=== PATIENT | male | born 1940 | race Caucasian/White ===

== ENCOUNTER → 2016-05-19 10:56 | Outpatient (CLI) | payer MEDICARE, BC ==
[2009-06-29 07:17] VITALS: BMI 25.5
== END | disposition home or self-care (01) ==
LOC: D.RAD 10:56
DX: R05 Cough (principal); R10.13 Epigastric pain

== ENCOUNTER → 2016-05-23 08:51 | Outpatient (CLI) | payer MEDICARE, BC ==
[2009-06-29 07:17] VITALS: BMI 25.5
== END | disposition home or self-care (01) ==
LOC: D.RAD 08:30
DX: R10.13 Epigastric pain (principal)

== ENCOUNTER → 2016-07-22 07:28 | Outpatient (CLI) | payer MEDICARE, BC ==
[2009-06-29 07:17] VITALS: BMI 25.5
[2016-07-23 09:12] LABS: IMMUNOGLOBULIN E 139 IU/mL (0-100)
[2016-07-25 14:16] LABS: IMMUNOGLOBULIN A 148 mg/dL (61-437); IMMUNOGLOBULIN G 762 mg/dL (700-1600)
== END | disposition home or self-care (01) ==
LOC: D.RT 07-20 08:00 → D.LAB 07-20 09:00 → D.RT 07:28
PROVIDERS: Internal Medicine Pulmonary Disease
DX: J45.991 Cough variant asthma (principal)

== ENCOUNTER 2016-09-13 07:08 | Emergency (ER) | payer MEDICARE, BC ==
[2009-06-29 07:17] VITALS: BMI 25.5
[2016-09-13 07:49] LABS: BASOPHILS 0.3 % (0-2); EOSINOPHILS 0 % (0-7); HEMATOCRIT 47.8 % (42.0-54.0); HEMOGLOBIN 16.3 g/dL (13.5-17.5); IMMATURE GRANULOCYTES 0.2 % (0-5); LYMPHOCYTES 9.7 % (15-50); MCH 31.2 pg (26.0-34.0); MCHC 34.1 g/dL (31.0-37.0); MCV 91.6 fL (80.0-100.0); MONOCYTES 9.1 % (2-11); NEUTROPHILS 80.7 % (40-80); PLATELET COUNT 183 10x3/uL (130-400); RBC 5.22 10x6/uL (4.20-6.10); RDW 13.9 % (11.5-14.5); WBC 10.3 10x3/uL (4.8-10.8)
[2016-09-13 08:11] LABS: ALBUMIN 3.7 g/dL (3.4-5.0); ANION GAP 14.7 mmol/L (8-16); BILIRUBIN - TOTAL 0.96 mg/dL (0.2-1.3); CALCIUM 9.8 mg/dL (8.5-10.1); CARBON DIOXIDE 26.2 mmol/L (21.0-32.0); CREATININE - SERUM 1.4 mg/dL (0.6-1.3); POTASSIUM - SERUM 3.9 mmol/L (3.5-5.1); PROTEIN - SERUM 7.1 g/dL (6.4-8.2)
[2016-09-13 08:20] LABS: MAGNESIUM - SERUM 2.2 mg/dL (1.8-2.4); THYROID STIMULATING HORMONE 8.09 uIU/mL (0.36-3.74)
== END 2016-09-13 12:24 | disposition home or self-care (01) ==
LOC: D.ER 07:08
PROVIDERS: Emergency Medicine
DX: R11.10 Vomiting, unspecified (principal); R10.9 Unspecified abdominal pain; E02 Subclinical iodine-deficiency hypothyroidism; F41.9 Anxiety disorder, unspecified; Z95.0 Presence of cardiac pacemaker; I44.0 Atrioventricular block, first degree

== ENCOUNTER 2016-10-29 19:58 | Emergency (ER) | payer MEDICARE, BC ==
[2009-06-29 07:17] VITALS: BMI 25.5
[2016-10-29 20:27] LABS: BASOPHILS 0.3 % (0-2); EOSINOPHILS 0.9 % (0-7); HEMATOCRIT 44.2 % (42.0-54.0); HEMOGLOBIN 14.7 g/dL (13.5-17.5); IMMATURE GRANULOCYTES 0.6 % (0-5); LYMPHOCYTES 8.9 % (15-50); MCHC 33.3 g/dL (31.0-37.0); MCV 93.2 fL (80.0-100.0); MEAN PLATELET VOLUME 9.6 fL (7.4-10.4); MONOCYTES 12.3 % (2-11); PLATELET COUNT 153 10x3/uL (130-400); RBC 4.74 10x6/uL (4.20-6.10); RDW 13.8 % (11.5-14.5); WBC 6.5 10x3/uL (4.8-10.8)
[2016-10-29 20:45] LABS: ALBUMIN 3.6 g/dL (3.4-5.0); ALKALINE PHOSPHATASE 73 U/L (46-116); ALT (SGPT) 27 U/L (10-68); AMYLASE - SERUM 46 U/L (25-115); BILIRUBIN - TOTAL 1.09 mg/dL (0.2-1.3); CALC OSMOLALITY 277 mosm/kg (275-300); CALCIUM 9.2 mg/dL (8.5-10.1); CHLORIDE - SERUM 103 mmol/L (98-107); GLUCOSE 123 mg/dL (74-106); LIPASE 117 U/L (73-393); POTASSIUM - SERUM 3.9 mmol/L (3.5-5.1); PROTEIN - SERUM 6.7 g/dL (6.4-8.2); SODIUM 137 mmol/L (136-145); UREA NITROGEN 20 mg/dL (7-18); eGFR NON AFRICAN AMERICAN 78 mL/min (90-120)
[2016-10-29 21:57] LABS: APPEARANCE CLEAR (CLEAR); BILIRUBIN NEGATIVE (NEGATIVE); COLOR YELLOW (YELLOW); GLUCOSE NEGATIVE (NEGATIVE); KETONE SMALL mg/dL (NEGATIVE); LEUKOCYTE ESTERASE NEGATIVE (NEGATIVE); NITRITE NEGATIVE (NEGATIVE); PROTEIN NEGATIVE (NEGATIVE); UROBILINOGEN NORMAL (NORMAL)
== END 2016-10-29 22:30 | disposition home or self-care (01) ==
LOC: D.ER 19:58
PROVIDERS: Emergency Medicine
DX: R11.10 Vomiting, unspecified (principal); E86.0 Dehydration; K59.00 Constipation, unspecified; F41.9 Anxiety disorder, unspecified; Z95.0 Presence of cardiac pacemaker; I44.0 Atrioventricular block, first degree; I49.3 Ventricular premature depolarization

== ENCOUNTER 2017-05-19 07:59 | Day surgery (SDC) | payer MEDICARE, BC ==
[~2017-05-19] VITALS: Ht 175.3 cm; Wt 77.1 kg
--- NOTE | ~2017-05-19 | OP ---
PATIENT NAME: VIPIN SUN JR MEDICAL RECORD: [id number] :44 LOCATION:[facility] ADMISSION DATE: SURGEON: NEIL GARCÍA MD DATE OF OPERATION: 05/19/2017 PREOPERATIVE DIAGNOSIS: Intractably symptomatic hemorrhoids. POSTOPERATIVE DIAGNOSIS: Intractably symptomatic hemorrhoids with third-degree internal hemorrhoidal prolapse. PROCEDURE: Procedure for prolapse and hemorrhoids. SURGEON: Neil García MD SAP SECURITY ARCHITECT: None. BLOOD LOSS: Minimal. ANESTHESIA: General. COMPLICATIONS: None. The risks, possible complications, and alternatives of the procedure were explained to the patient. He elected to proceed. OPERATIVE COURSE: The patient was conveyed to the operating room electively on 05/19/2017. General anesthesia was induced by the anesthesia staff. The patient was placed in the lithotomy position. The buttocks were taped laterally. The anus and perianal areas were sterilely prepped and draped. U-shaped anal retractors were placed. This revealed enlarged internal and external hemorrhoids as well as internal hemorrhoidal prolapse. There was no anal fissure. No anal fistula. No evidence of perirectal abscess. The clear retractor was placed and sewn in place to the surrounding anoderm with 2-0 silks. A mucosal pursestring suture of 2-0 Prolene was applied 1cm cephalad to the clear retractor. The PPH stapling device was inserted with the anvil cephalad to the pursestring suture, which was then tightened and tied. The stapling device was engaged. It was held in place for 2 minutes and then fired. It was then removed under direct vision. There was an entire donut of internal hemorrhoidal and rectal mucosal tissue within the stapling device. Bleeding along the anastomotic staple line was controlled with [id number] 3-0 Vicryls. Gelfoam was applied within the anus and the lower rectum. A combination of Marcaine and steroid preparation were used to infiltrate the perianal tissues. A topical anesthetic cream was applied to the external hemorrhoids. The patient was then extubated and conveyed to post-anesthesia care unit where he was in stable condition. The patient developed some urinary retention later in the evening and this required urinary catheterization. He is being dismissed home on hydrocodone as well as Valium and Colace. I will see him in the office on a p.r.n. basis. TRANSINT:[id number] Voice Confirmation ID: [id number] DOCUMENT ID: [id number] OPERATIVE REPORT [id number] VIPIN SUN JR, ROBERT MD at 0938 CC: REJI HANDY MD [id number] DICTATION DATE: 05/22/17 1209 NATURE PHOTOGRAPHER: 05/22/17 1525 [facility] 05/19/17 [place] [id number]
--- NOTE | ~2017-05-19 | HP ---
PATIENT: VIPIN SUN JR MEDICAL RECORD: [id number] ACCOUNT: [id number] LOCATION:[facility] : 44 ADMISSION DATE: 05/19/17 HISTORY AND PHYSICAL EXAMINATION CHIEF COMPLAINT: Hemorrhoids. HISTORY: The patient has intractably symptomatic hemorrhoids. He is to undergo a procedure for prolapse and hemorrhoids. The patient recently had an upper respiratory infection. On today's chest x-ray, it appears that he has bilateral pneumonias. He is not dyspneic. He has normal O2 saturations. The pathophysiology of hemorrhoids as well as the risks of the procedure were discussed with the patient. He elects to proceed. SOCIAL HISTORY: Nonsmoker. PAST MEDICAL AND SURGICAL HISTORY: COPD, bronchitis, history of bradycardia, hiatal hernia, depression, anxiety, insomnia, and hypercholesterolemia. He is hard of hearing. History of pacemaker, history of appendectomy, history of cholecystectomy. HOME MEDICINES: Albuterol, Pacerone, Flomax, Ambien, Celexa, Zocor, Breo as well as Xanax. ALLERGIES: No known drug allergies. PHYSICAL EXAMINATION: GENERAL: The patient does not appear acutely ill. He does not appear chronically ill. VITAL SIGNS: Reviewed. HEAD: External ears appear normal. EYES: Extraocular movements are intact. NECK: Trachea is midline. CHEST: No intercostal retractions. PULMONARY: Nonlabored. No stridor. IMPRESSION: Intractably symptomatic hemorrhoids. PLAN: Procedure for prolapse and hemorrhoids. TRANSINT:[id number] Voice Confirmation ID: [id number] DOCUMENT ID: [id number] BOY GARCÍA MD at 0938 CC: MATHIEU LOU MD, REJI HANDY MD and RITU MARIANO [id number] DICTATION DATE: 05/19/17 1204 ASSOCIATE DIRECTOR FINANCIAL AID: 05/19/17 1253 [facility] 05/19/17 [place] [id number] [place] [address]
[~2017-05-19 07:59] MED LIST: ALBUTEROL2.5 MG/3 M INH; AMBIEN10 MG PO; FLOMAX0.4 MG PO; PACERONE200 MG PO
[2017-05-19 08:42] LABS: HEMATOCRIT 43.9 % (42.0-54.0); HEMOGLOBIN 14.6 g/dL (13.5-17.5); MCH 30.2 pg (26.0-34.0); MCHC 33.3 g/dL (31.0-37.0); MCV 90.7 fL (80.0-100.0); MEAN PLATELET VOLUME 8.9 fL (7.4-10.4); RBC 4.84 10x6/uL (4.20-6.10); RDW 13.5 % (11.5-14.5); WBC 12.6 10x3/uL (4.8-10.8)
[2017-05-19] MEDS ORDERED: XANAX0.5 MG PO (09:33)
[2017-05-19] MEDS ORDERED: BREO ELLIPTA 21 EACH (09:33)
[2017-05-19] MEDS ORDERED: ZOCOR10 MG PO (09:34)
[2017-05-19] MEDS ORDERED: CELEXA40 MG PO (09:34)
[2017-05-19] MEDS ORDERED: MULTIPLE VITAMI1 TA1 PO (09:35)
[2017-05-19 09:44] VITALS: BP 118/64; Ht 175.3 cm; Wt 77.1 kg
[2017-05-19] MEDS ORDERED: HYDROCODON-ACE1 EAC7 PO (13:05)
[2017-05-19] MEDS ORDERED: VALIUM5 MG PO (13:05)
[2017-05-19] MEDS ORDERED: COLACE100 MG PO (13:05)
== END 2017-05-19 15:25 | disposition home or self-care (01) ==
LOC: D.OPS 07:59 → D.PAN 09:30 → D.OPS 10:00 → D.PAN 10:00 → D.OPS 15:25
PROVIDERS: Anesthesiology
DX: K64.2 Third degree hemorrhoids (principal); J44.9 Chronic obstructive pulmonary disease, unspecified; K44.9 Diaphragmatic hernia without obstruction or gangrene; Z01.812 Encounter for preprocedural laboratory examination

== ENCOUNTER → 2017-07-10 12:44 | Outpatient (CLI) | payer MEDICARE, BC ==
[2017-05-19 09:44] VITALS: BMI 25.1
[~2017-07-10 12:44] MED LIST changes: +BETAPACE 80 MG80 MG; +BREO ELLIPTA 21 EACH; +CELEXA40 MG PO; +COLACE100 MG PO; +HYDROCODON-ACE1 EAC7 PO; +MULTIPLE VITAMI1 TA1 PO; +PREDNISONE20 MG PO; +VALIUM5 MG PO; +XANAX0.5 MG PO; +ZOCOR10 MG PO
== END | disposition home or self-care (01) ==
LOC: D.RAD 12:44
DX: J45.909 Unspecified asthma, uncomplicated (principal)

== ENCOUNTER → 2017-07-24 13:59 | Outpatient (CLI) | payer MEDICARE, BC ==
[2017-05-19 09:44] VITALS: BMI 25.1
== END | disposition home or self-care (01) ==
LOC: D.CT 13:59
DX: J70.4 Drug-induced interstitial lung disorders, unspecified (principal)

== ENCOUNTER 2017-08-15 08:23 | Outpatient (CLI) | payer MEDICARE, BC ==
[~2017-08-15] VITALS: Ht 175.3 cm; Wt 72.7 kg
[~2017-08-15 08:23] MED LIST changes: -BETAPACE 80 MG80 MG; -PREDNISONE20 MG PO
[2017-08-15] MEDS ORDERED: BETAPACE 80 MG80 MG (09:03)
[2017-08-15] MEDS ORDERED: PREDNISONE20 MG PO (09:05)
[2017-08-15 09:21] VITALS: Ht 175.3 cm; Wt 72.7 kg
[2017-08-15 09:46] LABS: BASOPHILS 0.4 % (0-2); EOSINOPHILS 3.5 % (0-7); HEMATOCRIT 42.1 % (42.0-54.0); HEMOGLOBIN 14.1 g/dL (13.5-17.5); IMMATURE GRANULOCYTES 0.5 % (0-5); LYMPHOCYTES 15.6 % (15-50); MCH 29.9 pg (26.0-34.0); MCHC 33.5 g/dL (31.0-37.0); MCV 89.4 fL (80.0-100.0); MEAN PLATELET VOLUME 9.2 fL (7.4-10.4); MONOCYTES 10.4 % (2-11); NEUTROPHILS 69.6 % (40-80); PLATELET COUNT 211 10x3/uL (130-400); RBC 4.71 10x6/uL (4.20-6.10); RDW 14.7 % (11.5-14.5); WBC 8.4 10x3/uL (4.8-10.8)
[2017-08-15 09:55] LABS: APTT 25.2 SECONDS (22.8-39.4); INR 1.14 (0.85-1.17); PROTIME 14.2 SECONDS (11.6-15.0)
[2017-08-15 14:19] LABS: EOS BF 1 %; MACROPHAGES BF 80 %; NEUT - BF 4 %
[2017-08-16 19:12] LABS: ACID FAST SMEAR Negative (()); AFB SPECIMEN PROCESSING Concentration (())
[2017-08-18 13:18] LABS: FUNGUS STAIN Final report (())
[2017-08-21 16:12] LABS: FUNGUS MYCOLOGY CULTURE Preliminary report (())
== END 2017-08-15 13:00 | disposition home or self-care (01) ==
LOC: D.OPS 08:23
PROVIDERS: Internal Medicine Pulmonary Disease
DX: J18.9 Pneumonia, unspecified organism (principal); R93.8 Abnormal findings on diagnostic imaging of other specified body structures; J70.4 Drug-induced interstitial lung disorders, unspecified; J45.991 Cough variant asthma; J30.9 Allergic rhinitis, unspecified; K21.9 Gastro-esophageal reflux disease without esophagitis; Z01.812 Encounter for preprocedural laboratory examination

== ENCOUNTER → 2017-10-26 13:40 | Outpatient (CLI) | payer MEDICARE, BC ==
[2017-08-15 09:21] VITALS: BMI 23.6
[~2017-10-26 13:40] MED LIST changes: +BETAPACE 80 MG80 MG; +PREDNISONE20 MG PO
== END | disposition home or self-care (01) ==
LOC: D.RAD 13:40
DX: J18.9 Pneumonia, unspecified organism (principal)

== ENCOUNTER → 2018-04-02 12:46 | Outpatient (CLI) | payer MEDICARE, BC ==
[2017-08-15 09:21] VITALS: BMI 23.6
== END | disposition home or self-care (01) ==
LOC: D.RT 12:46
DX: J45.991 Cough variant asthma (principal); T46.2X5D Adverse effect of other antidysrhythmic drugs, subsequent encounter

== ENCOUNTER → 2018-09-28 10:07 | Outpatient (CLI) | payer MEDICARE, BC ==
[2017-08-15 09:21] VITALS: BMI 23.6
== END | disposition home or self-care (01) ==
LOC: D.RAD 10:07
PROVIDERS: ATTEND Internal Medicine Pulmonary Disease
DX: J45.901 Unspecified asthma with (acute) exacerbation (principal)

== ENCOUNTER → 2018-11-01 10:06 | Outpatient (CLI) | payer MEDICARE, BC ==
[2017-08-15 09:21] VITALS: BMI 23.6
[2018-11-01 10:56] LABS: BASOPHILS 0.4 % (0-2); EOSINOPHILS 6.9 % (0-7); HEMATOCRIT 46.9 % (42.0-54.0); HEMOGLOBIN 16.2 g/dL (13.5-17.5); IMMATURE GRANULOCYTES 0.2 % (0-5); LYMPHOCYTES 12.7 % (15-50); MCHC 34.5 g/dL (31.0-37.0); MCV 89.7 fL (80.0-100.0); MEAN PLATELET VOLUME 10.1 fL (7.4-10.4); NEUTROPHILS 65.8 % (40-80); PLATELET COUNT 185 10x3/uL (130-400); RBC 5.23 10x6/uL (4.20-6.10); RDW 13.6 % (11.5-14.5); WBC 12.1 10x3/uL (4.8-10.8)
== END | disposition home or self-care (01) ==
LOC: D.LAB 10:06 → EDSTATUS 10:13
PROVIDERS: ATTEND Internal Medicine Pulmonary Disease
DX: Z87.09 Personal history of other diseases of the respiratory system (principal); J45.901 Unspecified asthma with (acute) exacerbation

== ENCOUNTER 2019-02-19 20:59 | Inpatient (IN) | payer MEDICARE, BC ==
[~2019-02-19] VITALS: Ht 175.3 cm; Wt 72.6 kg
[2019-02-19] MEDS ORDERED: BETAPACE 80 MG80 MG PO (21:05)
--- NOTE | 2019-02-19 21:30 | NUR ---
PT PROVIDED WITH BLANKET. AT BEDSIDE.
--- NOTE | 2019-02-19 22:00 | NUR ---
PT O2 INCREASED TO 3 L NASAL CANNULA PER EDP CAMPUZANO.
[2019-02-19 22:01] VITALS: BP 133/67
[2019-02-19 22:25] LABS: BASOPHILS 1.1 % (0-2); EOSINOPHILS 11.9 % (0-7); HEMATOCRIT 44.7 % (42.0-54.0); HEMOGLOBIN 15.2 g/dL (13.5-17.5); IMMATURE GRANULOCYTES 0.3 % (0-5); LYMPHOCYTES 26.7 % (15-50); MCH 30.8 pg (26.0-34.0); MCV 90.7 fL (80.0-100.0); MEAN PLATELET VOLUME 9.8 fL (7.4-10.4); MONOCYTES 12.8 % (2-11); NEUTROPHILS 47.2 % (40-80); PLATELET COUNT 217 10x3/uL (130-400); RBC 4.93 10x6/uL (4.20-6.10); WBC 7.9 10x3/uL (4.8-10.8)
[2019-02-19 22:31] VITALS: BP 126/74
[2019-02-19 22:36] LABS: APTT 31.5 SECONDS (22.8-39.4); INR 1.12 (0.85-1.17); PROTIME 13.9 SECONDS (11.6-15.0)
[2019-02-19 22:43] LABS: ALBUMIN 3.3 g/dL (3.4-5.0); ALKALINE PHOSPHATASE 81 U/L (46-116); ALT (SGPT) 16 U/L (10-68); BILIRUBIN - TOTAL 0.52 mg/dL (0.2-1.3); CALC OSMOLALITY 286 mosm/kg (275-300); CALCIUM 8.7 mg/dL (8.5-10.1); CARBON DIOXIDE 25.4 mmol/L (21.0-32.0); CHLORIDE - SERUM 109 mmol/L (98-107); CREATININE - SERUM 0.9 mg/dL (0.6-1.3); GLUCOSE 88 mg/dL (74-106); POTASSIUM - SERUM 4.3 mmol/L (3.5-5.1); PROTEIN - SERUM 6.6 g/dL (6.4-8.2); SODIUM 143 mmol/L (136-145); UREA NITROGEN 22 mg/dL (7-18); eGFR NON AFRICAN AMERICAN 87 mL/min (90-120)
[2019-02-19 22:57] LABS: CREATINE KINASE 55 UL (21-232); PRO BNP 718 pg/mL (0-450); TROPONIN-I < 0.017 ng/mL (0.000-0.060)
[2019-02-19 23:01] VITALS: BP 122/75
[2019-02-20] VITALS (7 sets, daily range): BP systolic 104–145; BP diastolic 47–89; BMI 23.6
--- NOTE | 2019-02-20 00:22 | NUR ---
RECIEVED TO FLOOR, ACCOMPANIED BY STAFF AND SPOUSE. DENIES PAIN/SOB/DYSPNEA CURRENTLY. ANSWERS QUESTIONS APPROPRIATELY. AMBULATORY AD AMADOR. 3L 02 IN USE VIA NASAL CANNULA, SPO2 95%. DENIES CURRENT NEEDS AT THIS TIME, WILL CONTINUE TO MONITOR.
--- NOTE | 2019-02-20 01:55 | NUR ---
INFORMED OF NO AVAILABLE TELEMETRY MONITORS. WILL PASS IN REPORT.
[2019-02-20 05:32] LABS: BASOPHILS 0.6 % (0-2); EOSINOPHILS 2.3 % (0-7); HEMATOCRIT 45.6 % (42.0-54.0); HEMOGLOBIN 15.4 g/dL (13.5-17.5); IMMATURE GRANULOCYTES 0.1 % (0-5); LYMPHOCYTES 9.4 % (15-50); MCH 30.6 pg (26.0-34.0); MCHC 33.8 g/dL (31.0-37.0); MCV 90.7 fL (80.0-100.0); MEAN PLATELET VOLUME 10.2 fL (7.4-10.4); MONOCYTES 0.9 % (2-11); NEUTROPHILS 86.7 % (40-80); PLATELET COUNT 225 10x3/uL (130-400); RBC 5.03 10x6/uL (4.20-6.10); RDW 14.2 % (11.5-14.5); WBC 6.8 10x3/uL (4.8-10.8)
[2019-02-20 06:01] LABS: CALC OSMOLALITY 289 mosm/kg (275-300); CALCIUM 8.7 mg/dL (8.5-10.1); CHLORIDE - SERUM 108 mmol/L (98-107); CREATININE - SERUM 0.8 mg/dL (0.6-1.3); GLUCOSE 130 mg/dL (74-106); POTASSIUM - SERUM 4.5 mmol/L (3.5-5.1); SODIUM 143 mmol/L (136-145); UREA NITROGEN 21 mg/dL (7-18); eGFR NON AFRICAN AMERICAN > 90 mL/min (90-120)
--- NOTE | 2019-02-20 08:10 | NUR ---
PT RESTING IN BED WITH EYES CLOSED. OPENS EYES SPONTANEOUSLY. O2 @ 3L NC IN PLACE. RESP EVEN AND UNLABORED PT CPAP AT BEDSIDE. DENIES PAIN AT THIS TIME. SALINE LOC TO LEFT FOREARM. SITE WITHOUT REDNESS OR EDEMA. DISCUSSED PT HOME MEDICATIONS WITH PT. PT VOICES TAKING CELEXA, FLOMAX, THERAGRAM AND XANAX AT NIGHT. PT UNSURE OF BETAPACE DOSEAGE ASK STAFF TO CONTACT PHARMACY TO VERIFY DOSE. INFORMED PT THAT STAFF WOULD DO. PT DENIES FURTHER NEEDSA AT THIS TIME. CL WITHIN REACH. ENCOURAGED TO CALL WITH NEEDS. CONTINUE POC
--- NOTE | 2019-02-20 10:30 | NUR ---
CONTACTED [facility] TO VERIFY PT DOSE OF BETAPACE. REPORTED PT TAKES 160MG BY MOUTH TWICE A DAY. CONTACTED [facility]ENE IN PHARMACY TO VERIFY DOSAGE AND TIMES
[2019-02-21] VITALS: BP 114/63
[2019-02-21 03:20] VITALS: BP 125/70
--- NOTE | 2019-02-21 07:15 | NUR ---
PT SITTING UP IN BED, ALERT AND ORIENTED. RESP EVEN AND UNLABORED. 02 @ 3L NC IN PLACE. PT VOICES HAVING RESTED WELL LAST NIGHT AND VOICES THAT HE DOES FEEL "SOME BETTER" TODAY. DENIES PAIN AT THIS TIME. SALINE LOC TO LEFT FOREARM SITE WITHOUT REDNESS OR EDEMA. DENIES FURTHER NEEDS AT THIS TIME. CL WITHIN REACH. ENCOURAGED TO CALL WITH NEEDS. CONTINUE POC
[2019-02-21 09:48] VITALS: BP 125/69
[2019-02-21 12:29] VITALS: BP 138/73
[2019-02-21 16:23] VITALS: BP 127/63
[2019-02-21 20:00] VITALS: BP 119/69
--- NOTE | 2019-02-22 00:15 | NUR ---
PATIENT HAD COUGHING FIT. CALLED THE DOCTOR AND HAD COUGH SYRUP ORDERED FOR THE PATIENT.
[2019-02-22 04:00] VITALS: BP 114/65
[2019-02-22 08:35] VITALS: BP 127/71
[2019-02-22 09:28] VITALS: Ht 175.3 cm; Wt 72.6 kg
--- NOTE | 2019-02-22 09:53 | NUR ---
PT COUGHING TO MUCH NO TX GIVEN
[2019-02-22 13:14] VITALS: BP 115/62
--- NOTE | 2019-02-22 13:19 | NUR ---
PT SITTING UP ON SIDE OF BED EATING LUNCH, NO S/S OF DISTRESS AT THIS TIME. IV LOCATED TO LEFT FOREARM CURRENTLY SL. CURRENTLY RCVING 3L VIA NC. DENIES NEEDS AT THIS TIME, WILL CONT TO MONITOR.
--- NOTE | 2019-02-22 13:29 | EC ---
PATIENT:VIPIN SUN JR DATE OF SERVICE: 02/19/19 SEX: M MEDICAL RECORD: [id number] DATE OF : 44 LOCATION:[facility] AGE OF PATIENT: 78 ADMISSION DATE: 02/19/19 REFERRING PHYSICIAN: INTERPRETING PHYSICIAN: RITU SORIA MD ECHOCARDIOGRAM REPORT ECHO CHARGES 4 ECHO COMPLETE Date: 02/21/19 CLINICAL DIAGNOSIS: SOB HX PACEMAKER ECHOCARDIOGRAPHIC MEASUREMENTS (adult normal given) AC root (d.<3.7cm) 4.1 cm LV Septum d (<1.2 cm> 1.8 cm Valve Excursion 1.6 cm LV Septum (systole) 1.9 cm Left Atria (s.<4.0cm> 4.2 cm LVPW d(<1.2cm) 1.8 cm RV (d.<2.3cm) 4.8 cm LVPW (sytole) 2.2 cm LV diastole(<5.6CM) 5.3 cm MV E-F(>70mm/sec) cm LV systole 3.9 cm LVOT Diameter 1.9 cm MV exc.(>10mm) 1.7 cm Est.ejection fraction (50-75%) % DOPPLER: LVIT cm/sec A 62.0 cm/sec E 49.0 cm/sec LA cm/sec RVSP 19 mmHg LVOT 104 cm/sec AOP1/2T 807 m/s Asc. Ao 151 cm/sec RVOT 48 cm/sec RA cm/sec PA 124 cm/sec AV Gradient Peak 9.10 mmHg AV Mean 4.92 mmHg AV Area 2.0 cm MV Gradient Peak mmHg MV Mean mmHg MV Area cm COMMENTS: Manager Small Business: Jean MARIA Energy Conservation Technician: 1 Dr. Soria TAPE# PACS Pericardial Effusion N DATE OF SERVICE: 02/21/2019 FINDINGS: 1. Left ventricular chamber size is within normal limits. Left ventricular systolic function is normal. Overall ejection fraction estimated at 55%. 2. Left atrium is enlarged at 4.2 cm. Right atrium and right ventricular chamber sizes are as well mildly dilated. 3. Valvular structures have normal structure and motion. 4. Doppler interrogation reveals pipg-pi-zyrjacyr aortic insufficiency, trace mitral regurgitation, trace tricuspid regurgitation, no other valvular ECHOCARDIOGRAM REPORT [id number] VIPIN SUN JR insufficiency or stenosis. 5. No evidence of pericardial effusion or left ventricular thrombus. TRANSINT:[id number] Voice Confirmation ID: [id number] DOCUMENT ID: [id number] RITU SORIA MD at 1329 CC: [id number] DICTATION DATE: 02/21/19 1118 DIGITAL ANALYST: 02/21/19 1125 ADM IN [place] [id number] [place] [address]
[2019-02-22 16:31] VITALS: BP 128/64
--- NOTE | 2019-02-22 19:40 | NUR ---
Pt sitting on side of bed with no needs. water and call light in reach. O2 via n/c at 3L. Left FR sl with no redness noted at this time.
[2019-02-22 19:44] VITALS: BP 108/65
[2019-02-23 05:25] VITALS: BP 127/86
[2019-02-23 06:52] LABS: BASOPHILS 0 % (0-2); EOSINOPHILS 0 % (0-7); HEMATOCRIT 44.2 % (42.0-54.0); HEMOGLOBIN 14.7 g/dL (13.5-17.5); IMMATURE GRANULOCYTES 0.3 % (0-5); LYMPHOCYTES 8.9 % (15-50); MCH 30.8 pg (26.0-34.0); MCHC 33.3 g/dL (31.0-37.0); MCV 92.5 fL (80.0-100.0); MEAN PLATELET VOLUME 10.5 fL (7.4-10.4); MONOCYTES 6.6 % (2-11); NEUTROPHILS 84.2 % (40-80); PLATELET COUNT 247 10x3/uL (130-400); RBC 4.78 10x6/uL (4.20-6.10); RDW 14.1 % (11.5-14.5); WBC 10.4 10x3/uL (4.8-10.8)
--- NOTE | 2019-02-23 07:00 | NUR ---
ALERT AND ORIENTED, RESTING IN BED. NO C/O PAIN. NO S/S OF ACUTE DISTRESS NOTED. ON 3L O2, NC. IV TO LEFT FOREARM, SL. SITE PATENT WITHOUT REDNESS OR SWELLING. TELEMETRY 78 PACED. DENIES ANY NEEDS AT THIS TIME. CALL LIGHT IN REACH. WILL CONTINUE TO MONITOR.
[2019-02-23 07:11] LABS: CALC OSMOLALITY 282 mosm/kg (275-300); CALCIUM 8.3 mg/dL (8.5-10.1); CARBON DIOXIDE 28.1 mmol/L (21.0-32.0); CHLORIDE - SERUM 106 mmol/L (98-107); CREATININE - SERUM 0.9 mg/dL (0.6-1.3); GLUCOSE 107 mg/dL (74-106); POTASSIUM - SERUM 4.5 mmol/L (3.5-5.1); SODIUM 139 mmol/L (136-145); UREA NITROGEN 26 mg/dL (7-18); eGFR NON AFRICAN AMERICAN 87 mL/min (90-120)
[2019-02-23 08:40] VITALS: BP 123/81
[2019-02-23] MEDS ORDERED: Xopenex 0.63 MG INH INH (10:40)
[2019-02-23] MEDS ORDERED: BROVANA15 MCG/2 M INH (10:40)
[2019-02-23] MEDS ORDERED: ATROVENT 0.02%2.5 ML UPD (10:40)
[2019-02-23] MEDS ORDERED: MUCINEX DM ER1 EAC1 PO (10:41)
[2019-02-23] MEDS ORDERED: FLORAJEN3 CAPS460 MG PO (10:41)
[2019-02-23] MEDS ORDERED: CEFUROXIME500 MG PO (10:42)
[2019-02-23] MEDS ORDERED: PREDNISONE20 MG PO (10:47)
--- NOTE | 2019-02-23 12:31 | NUR ---
RX FOR XOPENEX NOT ESCRIBED. CALLED TO [facility] AND SPOKE WITH PHARMACISTLISA.
[2019-02-23 13:09] VITALS: BP 154/86
--- NOTE | 2019-02-23 13:25 | MORECARE ---
CASE MANAGEMENT DISCHARGE SUMMARY PATIENT: VIPIN SUN UNIT: [id number] ADM DATE: 02/19/19 AGE: 78 : 42 SEX: M ROOM/BED: D.2201 AUTHOR: YANETH OSWALD PHYSICIAN: REFERRING PHYSICIAN: REJI HANDY MD DATE OF SERVICE: 02/23/19 Discharge Plan Patient Name: VIPIN SUN [facility] [facility] 1940 Planned Disposition: Home Anticipated Discharge Date: 02/23/19 Discharge Date: Expected LOS: 4 Initial Reviewer: [email or web address] Initial Review Date: 02/20/2019 Generated: 02/23/19 2:25 pm DCPIA - Discharge Planning Initial Assessment Updated by [email or web address]: Klaudia Williamson on 02/23/19 1:25 pm * Is the patient Alert and Oriented? Yes * How many steps to enter\exit or inside your home? 4 w/rail * PCP DR Handy * Pharmacy [facility] ON [facility] [address] * Preadmission Environment Home with Family * ADLs Independent * Equipment CPAP Nebulizer * Other Equipment DENIES ANY ADDITIONAL DME * List name and contact numbers for known caregivers / representatives who currently or will assist patient after discharge: NISHA SUN- - [phone] * Verbal permission to speak to the caregivers and representatives has been obtained from the patient. No * Community resources currently utilized None * Please name any agencies selected above. N/A * Additional services required to return to the preadmission environment? No * Can the patient safely return to the preadmission environment? Yes * Has this patient been hospitalized within the prior 30 days at any hospital? No Patient Name: VIPIN SUN Page [id number] at 1325 All edits/amendments must be made on the electronic document DICTATION DATE: 02/23/19 1325 NEIGHBORHOOD AIDE: ALISA 02/23/19 1325 RPT#: [id number] DC DATE: STATUS: ADM IN [facility] [address] [place] [address] END OF REPORT
--- NOTE | 2019-02-23 13:38 | MORECARE ---
CASE MANAGEMENT DISCHARGE SUMMARY PATIENT: VIPIN SUN UNIT: [id number] ADM DATE: 02/19/19 AGE: 78 : 42 SEX: M ROOM/BED: D.2201 AUTHOR: MARGRET,DOC PHYSICIAN: REFERRING PHYSICIAN: REJI HANDY MD DATE OF SERVICE: 02/23/19 Discharge Plan Patient Name: VIPIN SUN Facility: [facility]:[place] : 1940 Planned Disposition: Home Anticipated Discharge Date: 02/23/19 Discharge Date: Expected LOS: 4 Initial Reviewer: [email or web address] Initial Review Date: 02/20/2019 Generated: 02/23/19 2:38 pm Comments DCP- Discharge Planning Updated by [email or web address]: Klaudia Williamson on 02/23/19 12:[address] CM MET WITH THE PATIENT AT THE BEDSIDE. HE WAS EATING HIS LUNCH THEREFORE I RETURNED AT 1256. HIS PLAN IS FOR DISCHARGE TO HOME W/ HIS . SHE IS PROVIDING TRANSPORTATION. HE IS NOT UTILIZING ANY SERVICES. WAS INDEPENDENT IN HIS CARE PRIOR TO ADMISSION. DENIES ANY NEED FOR ASSISTANCE OR HOME HEALTHCARE. PCP- DR HANDY [facility]- [facility]. HE IS ON ROOM AIR. STATES HE FEELS WELL. HE HAS A NEBULIZER AND CPAP AT HOME. DENIES ANY ADDITIONAL DME. CM EXPLAINED THE DISCHARGE IMM. THE PATIENT STATES HE IS VERY READY TO GO HOME. HAD NO QUESTIONS AND VOICED NO CONCERNS. PATIENT SIGNED ORIGINAL COPY FOR HIMSELF AND SIGNED ORIGINAL COPY TO PLACE IN HARD COVER CHART. DCPIA - Discharge Planning Initial Assessment Updated by [id number]: Klaudia Williamson on 02/23/19 1:25 pm * Is the patient Alert and Oriented? Yes * How many steps to enter\exit or inside your home? 4 w/rail * PCP DR Handy * [facility] [address] * Preadmission Environment Home with Family * ADLs Independent * Equipment CPAP Nebulizer * Other Equipment DENIES ANY ADDITIONAL DME * List name and contact numbers for known caregivers / representatives who currently or will assist patient after discharge: NISHA SUN- - [phone] * Verbal permission to speak to the caregivers and representatives has been obtained from the patient. No * Community resources currently utilized None * Please name any agencies selected above. N/A * Additional services required to return to the preadmission environment? No * Can the patient safely return to the preadmission environment? Yes * Has this patient been hospitalized within the prior 30 days at any hospital? 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
--- NOTE | 2019-02-23 14:27 | NUR ---
DISCHARGED PATIENT HOME WITH , VIA WHEELCHAIR ACCOMPANIED BY STAFF. DISCONTINUED IV, CATHETER TIP INTACT. WENT OVER DISCHARGE INSTRUCTIONS WITH PATIENT, PATIENT VERBALIZED UNDSERSTANDING. DENIES ANYTHING FURTHER AT THIS TIME.
--- NOTE | 2019-02-25 14:50 | MORECARE ---
CASE MANAGEMENT DISCHARGE SUMMARY PATIENT: VIPIN SUN UNIT: [id number] ADM DATE: 02/19/19 AGE: 78 : 42 SEX: M ROOM/BED: D.2201 AUTHOR: MARGRET,DOC PHYSICIAN: REFERRING PHYSICIAN: REJI HANDY MD DATE OF SERVICE: 02/25/19 Discharge Plan Patient Name: VIPIN SUN Facility: [facility]:[place] : 1940 Planned Disposition: Home Anticipated Discharge Date: 02/23/19 Discharge Date: 02/23/2019 Expected LOS: 4 Initial Reviewer: [email or web address] Initial Review Date: 02/20/2019 Generated: 02/25/19 3:49 pm Comments DCP- Discharge Planning Updated by [email or web address]: Klaudia Williamson on 02/23/19 12:[address] CM MET WITH THE PATIENT AT THE BEDSIDE. HE WAS EATING HIS LUNCH THEREFORE I RETURNED AT 1256. HIS PLAN IS FOR DISCHARGE TO HOME W/ HIS . SHE IS PROVIDING TRANSPORTATION. HE IS NOT UTILIZING ANY SERVICES. WAS INDEPENDENT IN HIS CARE PRIOR TO ADMISSION. DENIES ANY NEED FOR ASSISTANCE OR HOME HEALTHCARE. PCP- DR HANDY [facility]- [facility] AND [place]. HE IS ON ROOM AIR. STATES HE FEELS WELL. HE HAS A NEBULIZER AND CPAP AT HOME. DENIES ANY ADDITIONAL DME. CM EXPLAINED THE DISCHARGE IMM. THE PATIENT STATES HE IS VERY READY TO GO HOME. HAD NO QUESTIONS AND VOICED NO CONCERNS. PATIENT SIGNED ORIGINAL COPY FOR HIMSELF AND SIGNED ORIGINAL COPY TO PLACE IN HARD COVER CHART. DCPIA - Discharge Planning Initial Assessment Updated by [id number]: Klaudia Williamson on 02/23/19 1:25 pm * Is the patient Alert and Oriented? Yes * How many steps to enter\exit or inside your home? 4 w/rail * PCP DR Handy * Pharmacy [facility] ON [facility] AND [place] * Preadmission Environment Home with Family * ADLs Independent * Equipment CPAP Nebulizer * Other Equipment DENIES ANY ADDITIONAL DME * List name and contact numbers for known caregivers / representatives who currently or will assist patient after discharge: NISHA SUN- - [phone] * Verbal permission to speak to the caregivers and representatives has been obtained from the patient. No * Community resources currently utilized None * Please name any agencies selected above. N/A * Additional services required to return to the preadmission environment? No * Can the patient safely return to the preadmission environment? Yes * Has this patient been hospitalized within the prior 30 days at any hospital? 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 PATIENT HAD NO QUESTIONS. SIGNED COPY TO THE PATIENT. SIGNED COPY TO THE HARD COVER CHART Last DP export: 02/23/19 12:38 Patient Name: VIPIN SUN Page 18921 at 1450 All edits/amendments must be made on the electronic document DICTATION DATE: 02/25/191448 DIGITAL MEDIA MANAGER: ALISA 02/25/191448 RPT#: [id number] DC DATE:02/23/19 STATUS: DIS IN [facility] [address] [place] [address] END OF REPORT
== END 2019-02-23 14:29 | disposition home or self-care (01) | DRG 202 ==
LOC: D.ER 20:59 → D.MS 23:17
PROVIDERS: Family Medicine; ADMIT Family Medicine; ATTEND Family Medicine
DX: J20.9 Acute bronchitis, unspecified (principal); J44.0 Chronic obstructive pulmonary disease with (acute) lower respiratory infection; J44.1 Chronic obstructive pulmonary disease with (acute) exacerbation; I35.1 Nonrheumatic aortic (valve) insufficiency; R00.0 Tachycardia, unspecified; I48.0 Paroxysmal atrial fibrillation; K21.9 Gastro-esophageal reflux disease without esophagitis; K44.9 Diaphragmatic hernia without obstruction or gangrene; G47.33 Obstructive sleep apnea (adult) (pediatric); E78.5 Hyperlipidemia, unspecified; N40.0 Benign prostatic hyperplasia without lower urinary tract symptoms; I10 Essential (primary) hypertension

== ENCOUNTER → 2019-04-12 13:20 | Outpatient (CLI) | payer MEDICARE, BC ==
[2019-02-22 09:28] VITALS: BMI 23.6
[~2019-04-12 13:20] MED LIST changes: +ATROVENT 0.02%2.5 ML UPD; +BETAPACE 80 MG80 MG PO; +BROVANA15 MCG/2 M INH; +CEFUROXIME500 MG PO; +FLORAJEN3 CAPS460 MG PO; +MUCINEX DM ER1 EAC1 PO; +Xopenex 0.63 MG INH INH
== END | disposition home or self-care (01) ==
LOC: D.LABREF 13:20
PROVIDERS: ATTEND Internal Medicine Pulmonary Disease
DX: R19.7 Diarrhea, unspecified (principal)

== ENCOUNTER → 2020-01-21 11:30 | Outpatient (CLI) | payer MEDICARE, BC ==
[2019-02-22 09:28] VITALS: BMI 23.6
== END | disposition home or self-care (01) ==
LOC: D.LAB 11:30
PROVIDERS: ATTEND Internal Medicine Pulmonary Disease
DX: Z11.59 Encounter for screening for other viral diseases (principal)

== ENCOUNTER → 2020-01-23 10:25 | Outpatient (CLI) | payer MEDICARE, BC ==
[2019-02-22 09:28] VITALS: BMI 23.6
== END | disposition home or self-care (01) ==
LOC: D.RAD 10:25
PROVIDERS: ATTEND Internal Medicine Pulmonary Disease
DX: J45.991 Cough variant asthma (principal)

== ENCOUNTER 2020-07-17 14:09 | Emergency (ER) | payer MEDICARE, BC ==
[~2020-07-17] VITALS: Ht 175.3 cm; Wt 70.5 kg
[2020-07-17 14:13] VITALS: BP 119/76; Ht 175.3 cm; Wt 70.5 kg
== END 2020-07-17 16:33 | disposition home or self-care (01) ==
LOC: D.ER 14:09
DX: R51.9 Headache, unspecified (principal); S01.112A Laceration without foreign body of left eyelid and periocular area, initial encounter; W01.0XXA Fall on same level from slipping, tripping and stumbling without subsequent striking against object, initial encounter; Y93.9 Activity, unspecified; Y92.9 Unspecified place or not applicable; K21.9 Gastro-esophageal reflux disease without esophagitis

== ENCOUNTER → 2020-10-01 08:14 | Outpatient (CLI) | payer MEDICARE, BC ==
[2020-07-17 14:13] VITALS: BMI 22.9
== END | disposition home or self-care (01) ==
LOC: D.NM 08:14
PROVIDERS: ATTEND Family Medicine
DX: K31.84 Gastroparesis (principal)